=== PATIENT | female | born 1985 | race African-American/Black ===

== ENCOUNTER 2016-03-18 13:35 | Day surgery (SDC) | payer BC ==
[2016-03-17 13:41] VITALS: BMI 35.1
[2016-03-18] VITALS (9 sets, daily range): BP systolic 112–139; BP diastolic 67–90; PULSE 52–67; RESP 13–21; Ht 182.9 cm; Wt 108.5 kg
[~2016-03-18] VITALS: Ht 182.9 cm; Wt 108.5 kg
[2016-03-18] MEDS ORDERED: BUPIVACAINE 0.25% (MPF) 30 ML INJ ONE (15:52)
[2016-03-18] MEDS ORDERED: CEFAZOLIN 1 GM INJ ONE (16:04)
[2016-03-18] MEDS ORDERED: PROPOFOL 20 ML ONE (16:04)
[2016-03-18] MEDS ORDERED: MEPERIDINE 100 MG INJ ONE (16:04)
[2016-03-18] MEDS ORDERED: LIDOCAINE 2% (SDV) 5 ML INJ ONE (16:04)
[2016-03-18] MEDS ORDERED: METOCLOPRAMIDE 10 MG INJ ONE (16:05)
[2016-03-18] MEDS ORDERED: ONDANSETRON 4 MG INJ ONE (16:05)
[2016-03-18] MEDS ORDERED: MIDAZOLAM 1 MG/ML 2 ML INJ IV PRN (16:30)
[2016-03-18] MEDS ORDERED: hydrALAzine 20 MG INJ IV PRN (16:30)
[2016-03-18] MEDS ORDERED: FENTAnyl 50 MCG/ML VIAL IV PRN ×2 (16:30)
[2016-03-18] MEDS ORDERED: METOCLOPRAMIDE 10 MG INJ IV PRN (16:30)
[2016-03-18] MEDS ORDERED: morphine (1 MG/ML) 10ML SYRINGE IV PRN ×2 (16:30)
[2016-03-18] MEDS ORDERED: DIPHENHYDRAMINE 50 MG INJ IV PRN (16:30)
[2016-03-18] MEDS ORDERED: LABETALOL HCL 20MG INJ IV PRN (16:30)
[2016-03-18] MEDS ORDERED: MEPERIDINE 25 MG INJ IV PRN (16:30)
[2016-03-18] MEDS ORDERED: EPHEDrine SULFATE 50 MG/5 ML SYG IV PRN (16:30)
[2016-03-18] MEDS ORDERED: ONDANSETRON 4 MG INJ IV PRN (16:30)
[2016-03-18] MEDS ORDERED: HYDROmorphONE (0.2 MG/ML) 10ML SYG IV PRN ×2 (16:30)
[2016-03-18] MEDS ORDERED: BUPIVACAINE 0.25% (MPF) 30 ML INJ INJ ONE (16:49)
[2016-03-18] MEDS ORDERED: HYDROCODONE/APAP (5/325) TAB PO ONE (17:00)
--- NOTE | 2016-03-18 17:18 | OPR ---
DATE OF OPERATION: 03/18/2016 INDICATION: This is a 30-year-old female with a right gluteal mass. She requests surgical excision . Risks, alternatives, benefits and personnel were discussed with the patient. Patient expressed u nderstanding and consents to the operation. PREOPERATIVE DIAGNOSIS: Right gluteal mass. POSTOPERATIVE DIAGNOSIS: Right gluteal mass. OPERATION PERFORMED: 1. Excision of right gluteal mass with incision size of 5 cm and 5 x 3 cm size mass. 2. Localized adjacent tissue transfer with the use of skin flaps. SURGEON: Wenceslao Cortez MD SPECIMENS: Right gluteal mass. COMPLICATIONS: None. ANESTHESIA: General. PROCEDURE: The patient was taken to the OR and prepped and draped in the usual sterile fashion. Parks rgical timeout was performed. IV antibiotics were given. An elliptical incision was made over the right gluteal mass. There is some drainage. A 15 blade was used for the incision and dissection ca utery was used to circumferentially excise the mass. Hemostasis was established. The surgical site is irrigated with Betadine. Due to the large tissue defect, multilayer closure with localized robert cent tissue transfer with the use of multi-layer closure with interrupted 3-0 Vicryl and skin staple s and additionally packing was placed. Local anesthesia was injected. Dry dressings were applied. Dictated By: WENCESLAO MANSFIELD/SURAJ Conf#: [id number] DID#: [id number]
== END 2016-03-18 18:16 | disposition home or self-care (01) ==
LOC: SDS 13:35
PROVIDERS: ATTEND Surgery
DX: L72.0 Epidermal cyst (principal); E66.9 Obesity, unspecified; Z68.32 Body mass index [BMI] 32.0-32.9, adult
CPT/HCPCS: 14000; 84703; 88307; J0690; J2175; Z7512; Z7610; J2405; J2765